=== PATIENT | female | born 1995 | race Asian ===

== ENCOUNTER 2024-06-22 05:16 | Emergency (ER) | payer BC ==
[2024-06-22] MEDS ORDERED: Ondansetron ODT 4 MG TAB ONE (05:42)
[2024-06-22] MEDS ORDERED: Ibuprofen 800 MG TAB ONE (06:08)
[2024-06-22] MEDS ORDERED: Dicyclomine 20 MG TAB ONE (06:08)
== END 2024-06-22 06:36 | disposition home or self-care (01) ==
LOC: ERS 05:16
DX: R11.10 Vomiting, unspecified (principal); R10.10 Upper abdominal pain, unspecified
CPT/HCPCS: 99284; Q0162